=== PATIENT | male | born 1965 | race Two or more races ===

== ENCOUNTER 2018-05-11 20:03 | Emergency (ER) | payer OTHER ==
[~2018-05-11] VITALS: Ht 170.2 cm; Wt 123.0 kg
[2018-05-11 22:11] VITALS: BP 146/108
--- NOTE | 2018-05-11 22:19 | NUR ---
PATIENT ON FOUR DIFFERENT BLOOD PRESSURE MEDICATIONS THAT PATIENT BROUGHT IN THAT ARE CURRENTLY PRESCRIBED BY HIS PMD JESSE. PATIENT DENIES CP, FLORES, SOB, NO EDEMA NOTED. PATIENTS BLOOD PRESSURE IS LOWER THAT IT WAS IN TRIAGE. PATITIENT WILL CALL PMD AND OBTAIN AN APPOINTMENT VIPIN. PATIETN WILL RETURN TO THE ER IF HE BECOMES SYMPTOMATIC. PATIENT AMBULATED WNL OUT OF ER. ALSO, DAUGHTER SAID THAT HER PARENTS ARE CURRENTLY HAVING PERSONAL ISSUES THAT ARE CAUSING HIM STRESS.
== END 2018-05-11 22:23 | disposition home or self-care (01) ==
LOC: ER 20:03
DX: I10 Essential (primary) hypertension (principal); R11.0 Nausea; R42 Dizziness and giddiness; R68.2 Dry mouth, unspecified; Z56.0 Unemployment, unspecified
CPT/HCPCS: 99281

== ENCOUNTER 2023-08-12 10:39 | Outpatient (CLI) | payer MEDICAID | END 2023-08-12 23:59 | disposition home or self-care (01) | LOC: RAD 10:39 | PROVIDERS: ATTEND Family Medicine | DX: M47.817 Spondylosis without myelopathy or radiculopathy, lumbosacral region (principal); M48.07 Spinal stenosis, lumbosacral region; M17.0 Bilateral primary osteoarthritis of knee; M54.41 Lumbago with sciatica, right side; M25.561 Pain in right knee | CPT/HCPCS: 72110; 72220; 73565 ==

== ENCOUNTER 2024-04-22 10:35 | Emergency (ER) | payer MEDICAID ==
[~2024-04-22] VITALS: Ht 172.7 cm; Wt 122.7 kg
[2024-04-22 12:29] LABS: BASOPHILS % (AUTO) 0.4 % (0-1); EOSINOPHILS # (AUTO) 0.1 X10'3 (0-0.9); EOSINOPHILS % (AUTO) 1.4 % (0-6); HEMATOCRIT 46.4 % (42.0-52.0); HEMOGLOBIN 15.9 g/dl (14.0-17.9); LYMPHOCYTES # (AUTO) 2.4 X10'3 (1.1-4.8); LYMPHOCYTES % (AUTO) 25.9 % (21-51); MEAN CORPUSCULAR HEMOGLOBIN 33.5 PG (27.0-31.0); MEAN CORPUSCULAR HGB CONC 34.4 g/dL (33.0-36.5); MEAN CORPUSCULAR VOLUME 97.7 FL (78-98); MEAN PLATELET VOLUME 8.8 FL (7.4-10.4); MONOCYTES # (AUTO) 0.7 X10'3 (0-0.9); MONOCYTES % (AUTO) 7.3 % (2-12); NEUTROPHILS # (AUTO) 6.1 X10'3 (1.8-7.7); PLATELET COUNT 195 X10'3 (140-440); RED BLOOD COUNT 4.75 X10'6 (4.70-6.10); RED CELL DISTRIBUTION WIDTH 13.3 % (11.5-14.5); WHITE BLOOD COUNT 9.4 X10'3 (4.5-11.0)
[2024-04-22 12:38] LABS: ALANINE AMINOTRANSFERASE 42 U/L (12-78); ALBUMIN 3.3 G/DL (3.4-5.0); ALBUMIN/GLOBULIN RATIO 0.8 (1.1-1.5); ALKALINE PHOSPHATASE 69 IU/L (46-116); ANION GAP 11 (8-16); ASPARTATE AMINO TRANSFERASE 22 U/L (10-37); BILIRUBIN,TOTAL 0.7 MG/DL (0.1-1.0); BLOOD UREA NITROGEN 19 MG/DL (7-18); BUN/CREATININE RATIO 16.7 (10.0-20.0); CALCIUM 9.1 MG/DL (8.5-10.1); CHLORIDE 103 MMOL/L (99-107); CREATININE 1.14 MG/DL (0.60-1.10); GLUCOSE 150 MG/DL (70-104); POTASSIUM 3.9 MMOL/L (3.5-5.1); SODIUM 139 MMOL/L (135-145); TOTAL CARBON DIOXIDE 25.2 MMOL/L (24-32); TOTAL PROTEIN 7.2 G/DL (6.4-8.2); eCRCL 70 ML/MIN; eGFR 66 ML/MIN
[2024-04-22 12:56] VITALS: TEMP 98.9
[2024-04-22] MEDS ORDERED: HYDR-3965 PO (13:26)
[2024-04-22 13:47] VITALS: BP 138/85; PULSE 68; RESP 15; O2SAT 97
== END 2024-04-22 13:52 | disposition home or self-care (01) ==
LOC: ER 10:36
DX: L03.115 Cellulitis of right lower limb (principal); I10 Essential (primary) hypertension; M79.661 Pain in right lower leg
CPT/HCPCS: 36415; 80053; 85025; 93971; 99284